=== PATIENT | male | born 1965 | race Two or more races ===

== ENCOUNTER 2022-10-22 05:38 | Emergency (ER) | payer OTHER ==
[~2022-10-22] VITALS: Ht 175.3 cm; Wt 115.7 kg
[2022-10-22] MEDS ORDERED: ZESTRIL5 MG (05:49)
[2022-10-22] MEDS ORDERED: XOPENEX HFA15 GM (05:49)
== END 2022-10-22 10:29 | disposition home or self-care (01) ==
LOC: ER 05:38
DX: J45.909 Unspecified asthma, uncomplicated (principal); Z20.822 Contact with and (suspected) exposure to COVID-19

== ENCOUNTER 2022-11-08 09:42 | Emergency (ER) | payer OTHER ==
[~2022-11-08] VITALS: Ht 175.3 cm; Wt 115.7 kg
[~2022-11-08 09:42] MED LIST: XOPENEX HFA15 GM; ZESTRIL5 MG
[2022-11-08] MEDS ORDERED: FOSINOPRIL SODI40 MG PO (09:48)
[2022-11-08] MEDS ORDERED: SYMBICORT 16010.2 GM IH (09:49)
== END 2022-11-08 12:16 | disposition home or self-care (01) ==
LOC: ER 09:42
DX: J45.901 Unspecified asthma with (acute) exacerbation (principal); I10 Essential (primary) hypertension; Z88.8 Allergy status to other drugs, medicaments and biological substances; Z20.822 Contact with and (suspected) exposure to COVID-19